=== PATIENT | male | born 1995 | race Caucasian/White ===

== ENCOUNTER 2017-02-19 09:50 | Outpatient (CLI) | payer BC | END 2017-02-19 21:24 | disposition home or self-care (01) | LOC: SCT 09:50 | PROVIDERS: ATTEND Orthopaedic Surgery | DX: S52.041A Displaced fracture of coronoid process of right ulna, initial encounter for closed fracture (principal); X58.XXXA Exposure to other specified factors, initial encounter; Y93.89 Activity, other specified; Y92.89 Other specified places as the place of occurrence of the external cause; Y99.8 Other external cause status | CPT/HCPCS: 73200-TC ==